=== PATIENT | female | born 1990 | race African-American/Black ===

== ENCOUNTER 2017-03-09 13:01 | Emergency (ER) | payer OTHER ==
[~2017-03-09] VITALS: Ht 157.5 cm; Wt 102.1 kg
[2017-03-09] MEDS ORDERED: KETOROLAC 60MG/2ML VIAL IM ONE (17:45)
[2017-03-09 18:31] VITALS: BP 138/68
== END 2017-03-09 18:55 | disposition home or self-care (01) ==
LOC: ER 18:34
DX: J02.8 Acute pharyngitis due to other specified organisms (principal)
CPT/HCPCS: 81025; 96372; 99283; J1885